=== PATIENT | male | born 1985 | race Caucasian/White ===

== ENCOUNTER 2020-05-23 07:05 | Day surgery (SDC) | payer BC, OTHER ==
[~2020-05-23 07:05] MED LIST: Lactated Ringers 1,000 ML IV SCH; Midazolam 1 MG/ML 2 ML SDV ONE; Propofol 200 MG/20 ML SDV ONE
[2020-05-23] MEDS ORDERED: Glycopyrrolate 0.2 MG/ML SDV ONE (07:09)
[2020-05-23] MEDS ORDERED: Lidocaine 2% 5 ML SDV ONE (07:09)
--- NOTE | 2020-05-23 08:22 | PCM.PREANE ---
Preanesthetic Assessment - Anesthesia/Transfusion/Family Hx Anesthesia History: Prior Anesthesia Without Reaction Family History of Anesthesia Reaction: No Transfusion History: No Prior Transfusion(s) - Review of Systems General: No Symptoms Pulmonary: No Symptoms Cardiovascular: No Symptoms Gastrointestinal: No Symptoms Neurological: No Symptoms Other: Reports: None - Physical Assessment NPO Status Date: 05/23/20 NPO Status Time: 00:01 Vital Signs: Last Vital Signs Temp 98.2 F 05/23/20 07:23 Pulse 80 05/23/20 07:23 Resp 16 05/23/20 07:23 BP 126/86 05/23/20 07:23 Pulse Ox 97 05/23/20 07:23 Height: 5 ft 6 in Weight: 177 lb ASA Class: 2 Mental Status: Alert & Oriented x3 Airway Class: Mallampati = 2 Dentition: Reports: Normal Dentition ROM/Head Extension: Full Lungs: Clear to Auscultation, Normal Respiratory Effort Cardiovascular: Regular Rate, Regular Rhythm - Allergies Allergies/Adverse Reactions: Allergies Allergy/AdvReac Type Severity Reaction Status Date / Time animal dander Allergy wheezing, Verified 05/23/20 07:26 cough Dairy Products Allergy Stomach Verified 05/23/20 07:26 Upset hydrocodone Allergy Rash Verified 05/23/20 07:26 metoclopramide [From Reglan] Allergy muscle Verified 05/23/20 07:26 contractions Penicillins Allergy Rash Verified 05/23/20 07:26 - Anesthesia Plan Pre-Op Medication Ordered: None - Acknowledgements Anesthesia Type Planned: General Anesthesia Pt an Appropriate Candidate for the Planned Anesthesia: Yes Alternatives and Risks of Anesthesia Discussed w Pt/Guardian: Yes Pt/Guardian Understands and Agrees with Anesthesia Plan: Yes Additional Comments: npo tob none etoh occ obesity hayfever urmila resolved childhood asthma C5-7 fusion with occ n/t down L arm cervical extension does not reproduce sx par no questions PreAnesthesia Questionnaire HEENT History: Reports: None Cardiovascular History: Reports: None Respiratory History: Reports: Asthma Other Respiratory History: asthma as a child Gastrointestinal History: Reports: Chronic Diarrhea, GERD Genitourinary History: Reports: None Musculoskeletal History: Reports: Back Pain, Chronic Neurological History: Reports: None Psychiatric History: Reports: None Endocrine/Metabolic History: Reports: None Hematologic History: Reports: None Immunologic History: Reports: None Oncologic (Cancer) History: Reports: None Dermatologic History: Reports: None - Past Surgical History Head Surgeries/Procedures: Reports: None HEENT Surgical History: Reports: LASIK Cardiovascular Surgical History: Reports: None Respiratory Surgical History: Reports: None GI Surgical History: Reports: None Male Surgical History: Reports: None Endocrine Surgical History: Reports: None Neurological Surgical History: Reports: C-Spine Other Neurological Surgeries/Procedures: hx neck surgery Musculoskeletal Surgical History: Reports: None Oncologic Surgical History: Reports: None Dermatological Surgical History: Reports: None - SUBSTANCE USE Tobacco Use Status *Q: Never Tobacco User - HOME MEDS Home Medications: Home Meds Acetaminophen [Tylenol] 2 tab PO TID 05/16/20 [History] Bismuth Subsalicylate [Pepto Bismol] 1 dose PO ASDIRECTED PRN 05/16/20 [History] Budesonide [Rhinocort Allergy] 1 spray NASBOTH DAILY 05/16/20 [History] Cetirizine [ZyrTEC] 10 mg PO DAILY 05/16/20 [History] Hydrocortisone [Hydrocortisone 2.5% Crm] 1 applic TOP BID PRN 05/16/20 [History] Ibuprofen 1 tab PO BID 05/16/20 [History] - CURRENT (IN HOUSE) MEDS Current Meds: Current Medications Lactated Ringer's (Ringers, Lactated) 1,000 mls @ 125 mls/hr IV ASDIRECTED RADHA Last Admin: 05/23/20 07:22 Dose: 125 mls/hr Documented by: Discontinued Medications Glycopyrrolate (Glycopyrrolate 0.2 Mg/Ml Sdv) Confirm Administered Dose 0.2 mg .ROUTE .STK-MED ONE Stop: 05/23/20 07:10 Lidocaine (Lidocaine 2% 5 Ml Sdv) Confirm Administered Dose 5 ml .ROUTE .STK-MED ONE Stop: 05/23/20 07:10 Midazolam HCl (Midazolam 1 Mg/Ml 2 Ml Sdv) Confirm Administered Dose 2 mg .ROUTE .STK-MED ONE Stop: 05/23/20 07:05 Propofol (Propofol 200 Mg/20 Ml Sdv) Confirm Administered Dose 600 mg .ROUTE . STK-MED ONE Stop: 05/23/20 07:05
--- NOTE | 2020-05-23 09:07 | PCM.OPNOTE ---
- General Post-Op/Procedure Note Date of Surgery/Procedure: 05/23/20 Operative Procedure(s): egd w bx and colonoscopy w bx Findings: see [id number] Pre Op Diagnosis: change in bowel habbits and gerd Post-Op Diagnosis: Same Anesthesia Technique: Moderate Sedation Primary Surgeon: Igor Lewis Pathology: egd bx random colon bx Complications: None Condition: Good
--- NOTE | 2020-05-23 09:47 | PCM.POSTAN ---
POST ANESTHESIA ASSESSMENT - MENTAL STATUS Mental Status: Alert (no anesthetic problems), Oriented - VITAL SIGNS Vital Signs: Last Vital Signs Temp 97.2 F 05/23/20 09:25 Pulse 80 05/23/20 09:25 Resp 14 05/23/20 09:25 BP 124/68 05/23/20 09:25 Pulse Ox 99 05/23/20 09:25 - RESPIRATORY Respiratory Status: Respiratory Rate WNL, Airway Patent, O2 Saturation Stable - CARDIOVASCULAR CV Status: Pulse Rate WNL, Blood Pressure Stable - GASTROINTESTINAL GI Status: No Symptoms - POST OP HYDRATION Hydration Status: Adequate & Stable
--- NOTE | 2020-05-23 12:06 | PCM48HPAN ---
Post Anesthesia Note - EVALUATION WITHIN 48HRS OF ANESTHETIC Vital Signs in Normal Range: Yes Patient Participated in Evaluation: Yes Respiratory Function Stable: Yes Airway Patent: Yes Cardiovascular Function Stable: Yes Hydration Status Stable: Yes Pain Control Satisfactory: Yes Nausea and Vomiting Control Satisfactory: Yes Mental Status Recovered: Yes Vital Signs: Last Vital Signs Temp 97.2 F 05/23/20 09:25 Pulse 80 05/23/20 09:25 Resp 14 05/23/20 09:25 BP 124/68 05/23/20 09:25 Pulse Ox 99 05/23/20 09:25
--- NOTE | 2020-05-23 12:56 | OR ---
SURGEON: Igor Lewis MD DATE OF PROCEDURE: 05/23/2020 PREOPERATIVE DIAGNOSES: Alternating diarrhea and constipation and acid reflux. POSTOPERATIVE DIAGNOSES: Alternating diarrhea and constipation and acid reflux. PROCEDURE PERFORMED: 1. Esophagogastroduodenoscopy with biopsy. 2. Colonoscopy with biopsy. DESCRIPTION OF PROCEDURE: EGD: The patient was taken to the endoscopy room, and with the [employer], Diprivan was administered. A well-lubricated EGD scope was gently inserted through the oropharynx, down the esophagus, passing through the gastroesophageal junction, into the stomach. The mucosa was examined upon the passage. Any etiology will be noted. Once in the stomach, we continued to advance to the distal antrum, passed through the pylorus into the second portion of the duodenum. Again, the mucosa was examined for any abnormality and etiology. The scope was then retrieved back to the stomach and then retroflexed to look at the fundus of the stomach. If a biopsy was indicated, we will biopsy the antrum, body, and gastroesophageal junction. The air will be sucked out while the scope is retrieved to reduce the patient's discomfort. The patient tolerated the procedure well. There were no intraoperative complications. Dr. Lewis was present through the whole procedure. Prior to surgery, a time-out had been called, the patient identified, procedure identified and antibiotic administered. The patient was taken to the endoscopy room. A time out was called, patient identified, and procedure identified. Diprivan was then administrated. Patient went from awake to sleep, hearing doctor talking or door closing is normal. Perineum inspection and digital examination were then performed. A well- lubricated colonoscope was gently inserted through the rectum, advanced past the rectosigmoid junction, the descending colon, splenic flexure, transverse colon, hepatic flexure, ascending colon, arrived to the cecum. Cecum was identified as dictated in the finding. Then the scope was carefully withdrawn while attention was paid to the mucosal surface for any abnormality. Air will be sucked out during the scope withdrawal. At the rectum, retroflexed to examine any rectal diseases, fistula or hemorrhoids. During mucosal examination, abnormality or polyp was noted; picture taken and biopsy performed. Patient tolerated procedure well. There were no intraoperative complications, and Dr. Lewis was present throughout the whole procedure. EGD FINDINGS: 1. Patient easily sedated with [employer]ER and Diprivan, patient is soundly snoring. 2. Oropharynx and proximal esophagus are free of disease, stricture, inflammation, or varicosity, none of those. Distal esophagus at GE junction at 40 shows mild salmon-colored change, suggests mild acid reflux. Stomach rugae is normal in appearance. Antrum looks fine. Duodenum looks grossly normal. Retroflexed look at the fundus of stomach, there is no hiatal hernia. Biopsy done at antrum, body, and GE junction at 40 and sucked out of gas while scope pulling out. The gastric mucosa is a little bit pliable, suggests early phase of gastritis. Even the scope touching, may get a little bit bleeding. During the whole study, there was no blood, ulcer, food, or bile observed. COLONOSCOPY FINDINGS: 1. The patient is sedated with [employer] and Diprivan, patient is soundly snoring. 2. Bowel prep is average to above average, very little liquid stool, no semi- formed stool. 3. Colon rather straightforward. Cecum indicated by ileocecal fold, one-to- one indentation, and appendiceal orifice and ScopeGuide is pointing South. Mucosa examined. Upon scope pulling out, the patient does not have diverticulosis, polyp, mass, growth, inflammation, stricture, AV malformation, and bleeding, none of those and stool is yellow. Random biopsy done for clinical reason, diarrhea versus constipation. The patient does not have external hemorrhoids or internal hemorrhoids. The patient would benefit from repeat colonoscopy in 10 years from today or if clinically indicated otherwise. TITO / BEE /[id number]
== END 2020-05-23 09:47 | disposition home or self-care (01) ==
LOC: MW.SDS 07:05
PROVIDERS: ATTEND Surgery
DX: K21.00 Gastro-esophageal reflux disease with esophagitis, without bleeding (principal); K52.9 Noninfective gastroenteritis and colitis, unspecified; R19.5 Other fecal abnormalities; J45.909 Unspecified asthma, uncomplicated; F17.210 Nicotine dependence, cigarettes, uncomplicated; E66.9 Obesity, unspecified; Z68.28 Body mass index [BMI] 28.0-28.9, adult; Z88.0 Allergy status to penicillin; Z91.011 Allergy to milk products; Z88.8 Allergy status to other drugs, medicaments and biological substances; Z91.09 Other allergy status, other than to drugs and biological substances; Z79.899 Other long term (current) drug therapy
CPT/HCPCS: 43239; 45380; 88305; 88312; J2250; J2704; J3490; J7120; 00813